=== PATIENT | male | born 1980 | race Two or more races ===

== ENCOUNTER 2016-07-12 09:55 | Day surgery (SDC) | payer OTHER ==
[2016-07-04 15:28] VITALS: BMI 23.4
[~2016-07-12] VITALS: Ht 165.1 cm; Wt 77.5 kg
[~2016-07-12 09:55] MED LIST: CEFAZOLIN 2 GM/50 ML (PMX) 50 ML IVPB SCH; SOD CHLORIDE 0.9% 1,000 ML IV SCH
[2016-07-12 10:36] VITALS: Ht 165.1 cm; Wt 77.5 kg
[2016-07-12 10:41] VITALS: BP 106/59; PULSE 81; RESP 16
[2016-07-12] MEDS ORDERED: INSULIN ASPART [NOVOLOG] 3 ML PEN SC ONE (11:30)
[2016-07-12] MEDS ORDERED: GLIP-95 PO (11:32)
[2016-07-12] MEDS ORDERED: METF-480 PO (11:32)
[2016-07-12] MEDS ORDERED: LIDOCAINE 2% (MDV) 20 ML INJ ONE (13:28)
[2016-07-12] MEDS ORDERED: BUPIVACAINE 0.25% (MPF) 30 ML INJ ONE (13:28)
[2016-07-12] MEDS ORDERED: MIDAZOLAM 1 MG/ML 2 ML INJ ONE (13:33)
[2016-07-12] MEDS ORDERED: FENTAnyl 50 MCG/ML VIAL ONE (13:33)
[2016-07-12] MEDS ORDERED: LIDOCAINE 2% (SDV) 5 ML INJ ONE (14:06)
[2016-07-12] MEDS ORDERED: PROPOFOL 20 ML ONE (14:06)
[2016-07-12] MEDS ORDERED: CEFAZOLIN 1 GM INJ ONE (14:06)
[2016-07-12] MEDS ORDERED: ONDANSETRON 4 MG INJ ONE (14:14)
[2016-07-12] MEDS ORDERED: BUPIVACAINE 0.25% (MPF) 10 ML 10 ML VIAL INJ ONE (14:15)
[2016-07-12 14:23] VITALS: BP 107/52; RESP 17
[2016-07-12 14:28] VITALS: BP 104/55; PULSE 94; RESP 17
[2016-07-12] MEDS ORDERED: HYDROCODONE/APAP (5/325) TAB PO ONE (14:30)
[2016-07-12 14:33] VITALS: BP 97/49; PULSE 96; RESP 14
[2016-07-12 15:00] VITALS: BP 109/59; PULSE 95; RESP 20
--- NOTE | 2016-07-12 15:01 | OPR ---
DATE OF OPERATION: 07/12/2016 INDICATION: This is a 35-year-old male with a large left posterior scalp mass. He requests surgica l excision. Risks, alternatives, benefits, and personnel were discussed with the patient. Patient expressed understanding and consents to the operation. PREOPERATIVE DIAGNOSIS: Left posterior scalp mass. POSTOPERATIVE DIAGNOSIS: Left posterior scalp mass and abscess. OPERATION PERFORMED: 1. Excision of left posterior scalp mass with 6 cm size incision and 6 x 2 cm size mass. 2. Incision and drainage of scalp abscess. 3. Localized adjacent tissue transfer with the use of skin flaps of 12 square cm defect. SURGEON: Isaac Bedolla MD SPECIMEN: Left posterior scalp mass excision. COMPLICATIONS: None. ANESTHESIA: General. PROCEDURE: The patient was taken to the OR and prepped and draped in usual sterile fashion. Surgic al timeout was performed. IV antibiotics were given. An elliptical incision was made over the left posterior scalp mass with a 15 blade. Dissection cautery was carried down to the bone. There was a pocket of abscess which was drained and thoroughly irrigated. There was good hemostasis after the excision of the mass. Due to the large tissue defect of approximately 12 square cm, localized von cent tissue transfer with the use of skin flaps was performed. Multilayer closure with interrupted 2-0 Vicryl and interrupted 2-0 nylon. Local anesthesia was injected. Dry dressings were applied. Dictated By: ISAAC CUENCA/RICH Conf#: [id number] DID#: [id number]
== END 2016-07-12 15:36 | disposition home or self-care (01) ==
LOC: SDS 09:55
PROVIDERS: ATTEND Surgery
DX: L73.8 Other specified follicular disorders (principal); R22.0 Localized swelling, mass and lump, head; E11.9 Type 2 diabetes mellitus without complications
CPT/HCPCS: 14020; 82962; 88307; J0690; J1815; J2250; J2405; J3010